=== PATIENT | female | born 1970 | race Caucasian/White ===

== ENCOUNTER 2018-09-11 07:08 | Day surgery (SDC) | payer MEDICAID ==
[2018-08-23 13:49] LABS: ADD MAN DIFF? NO
[2018-08-23 13:51] LABS: BASOPHIL # 0.1 10^3/ul (0.0-0.1); BASOPHILS % 0.8 % (0.0-2.0); EOSINOPHILS # 0.1 10^3/ul (0.0-0.5); EOSINOPHILS % 1.9 % (0.0-7.0); HEMATOCRIT 37.8 % (37.0-47.0); HEMOGLOBIN 12.6 g/dl (12.0-16.0); LYMPHOCYTES # 1.7 10^3/ul (0.8-2.9); LYMPHOCYTES % 29.2 % (15.0-51.0); MEAN CORPUSCULAR HEMOGLOBIN 28.5 pg (29.0-33.0); MEAN CORPUSCULAR HGB CONC 33.3 g/dl (32.0-37.0); MEAN CORPUSCULAR VOLUME 85.5 fl (82.0-101.0); MEAN PLATELET VOLUME 11.2 fl (7.4-10.4); MONOCYTE # 0.5 10^3/ul (0.3-0.9); MONOCYTES % 8.8 % (0.0-11.0); NEUTROPHIL # 3.5 10^3/ul (1.6-7.5); PLATELET COUNT 196 10^3/UL (140-415); RED BLOOD COUNT 4.42 10^6/ul (4.20-5.40); RED CELL DISTRIBUTION WIDTH 13.1 % (11.5-14.5)
[2018-08-23 13:51] LABS: WHITE BLOOD COUNT 5.9 10^3/ul (4.8-10.8)
[2018-08-23 14:11] LABS: INR 0.89; PROTIME 12.1 Sec (11.9-14.9); PT RATIO 0.9
[2018-08-23 14:15] LABS: PARTIAL THROMBOPLASTIN TIME 24.1 Sec (23.0-35.0)
[2018-08-23 14:23] LABS: ANION GAP 8 (5-13); BILIRUBIN,INDIRECT 0.3 mg/dl (0-1.1); BILIRUBIN,TOTAL 0.3 mg/dl (0.2-1.3); CARBON DIOXIDE 26 mmol/L (21-31); CHLORIDE 108 mmol/L (97-110); POTASSIUM 4.1 mmol/L (3.5-5.1); SODIUM 142 mmol/L (135-144)
[2018-08-23 14:29] LABS: BLOOD UREA NITROGEN 16 mg/dl (7-20); GLUCOSE 91 mg/dl (70-220)
[2018-08-23 14:30] LABS: ALANINE AMINOTRANSFERASE 42 IU/L (13-69); ALKALINE PHOSPHATASE 55 IU/L (42-121); ASPARTATE AMINO TRANSFERASE 32 IU/L (15-46); CALCIUM 9.7 mg/dl (8.4-10.2); CREATININE 0.53 mg/dl (0.44-1.00); Estimated GFR > 60 mL/min (>60)
[2018-08-23 14:31] LABS: ALBUMIN 4.1 g/dl (3.3-4.9); ALBUMIN/GLOBULIN RATIO 1.41
[2018-09-08 11:20] LABS: ADD MAN DIFF? NO
[2018-09-08 11:22] LABS: WHITE BLOOD COUNT 5.4 10^3/ul (4.8-10.8)
[2018-09-08 11:22] LABS: BASOPHIL # 0.1 10^3/ul (0.0-0.1); BASOPHILS % 1.1 % (0.0-2.0); EOSINOPHILS # 0.1 10^3/ul (0.0-0.5); EOSINOPHILS % 2.6 % (0.0-7.0); HEMATOCRIT 40.2 % (37.0-47.0); HEMOGLOBIN 13.1 g/dl (12.0-16.0); LYMPHOCYTES # 1.7 10^3/ul (0.8-2.9); LYMPHOCYTES % 31.6 % (15.0-51.0); MEAN CORPUSCULAR HEMOGLOBIN 28.4 pg (29.0-33.0); MEAN CORPUSCULAR HGB CONC 32.6 g/dl (32.0-37.0); MEAN PLATELET VOLUME 11.2 fl (7.4-10.4); MONOCYTE # 0.5 10^3/ul (0.3-0.9); MONOCYTES % 8.8 % (0.0-11.0); NEUTROPHILS % 55.5 % (39.0-77.0); PLATELET COUNT 190 10^3/UL (140-415); RED BLOOD COUNT 4.62 10^6/ul (4.20-5.40); RED CELL DISTRIBUTION WIDTH 13.2 % (11.5-14.5)
[2018-09-08 11:39] LABS: ALANINE AMINOTRANSFERASE 46 IU/L (13-69); ALBUMIN/GLOBULIN RATIO 1.42; ALKALINE PHOSPHATASE 51 IU/L (42-121); ANION GAP 9 (5-13); ASPARTATE AMINO TRANSFERASE 34 IU/L (15-46); BILIRUBIN,INDIRECT 0.4 mg/dl (0-1.1); BILIRUBIN,TOTAL 0.4 mg/dl (0.2-1.3); BLOOD UREA NITROGEN 14 mg/dl (7-20); CALCIUM 9.5 mg/dl (8.4-10.2); CARBON DIOXIDE 26 mmol/L (21-31); CHLORIDE 108 mmol/L (97-110); CREATININE 0.56 mg/dl (0.44-1.00); Estimated GFR > 60 mL/min (>60); GLUCOSE 90 mg/dl (70-220); POTASSIUM 4.1 mmol/L (3.5-5.1); SODIUM 143 mmol/L (135-144); TOTAL PROTEIN 6.8 g/dl (6.1-8.1)
[2018-09-08 11:43] LABS: PROTIME 12.3 Sec (11.9-14.9)
[2018-09-08 12:35] LABS: PARTIAL THROMBOPLASTIN TIME 23.3 Sec (23.0-35.0)
[2018-09-11] MEDS: CEFAZOLIN 2 GM/50 ML (PMX) 50 ML IVPB (06:00)
[2018-09-11] MEDS: SOD CHLORIDE 0.9% 1,000 ML IV ×2 (08:19→11:23)
[2018-09-11] MEDS ORDERED: PROPOFOL 100 ML (09:33)
[2018-09-11] MEDS ORDERED: LIDOCAINE 2% (SDV) 5 ML INJ (09:34)
[2018-09-11] MEDS ORDERED: CEFAZOLIN 1 GM INJ (09:35)
[2018-09-11] MEDS ORDERED: DEXAMETHASONE 4 MG/ML 5 ML INJ ×2 (10:14→10:20)
[2018-09-11] MEDS ORDERED: ONDANSETRON 4 MG INJ (10:14)
[2018-09-11] MEDS: BUPIVACAINE 0.5%/EPI (SDV) 30 ML INJ (10:25)
[2018-09-11] MEDS ORDERED: ALBUTEROL 0.083% (NEB) 2.5 MG/3 ML AMP HHN (11:00)
[2018-09-11] MEDS ORDERED: hydrALAzine 20 MG INJ IV (11:00)
[2018-09-11] MEDS ORDERED: ALBUMIN HUMAN 5% 250 ML IV (11:00)
[2018-09-11] MEDS ORDERED: OXYCODONE/ACETAMINOPHEN (5/325) TAB PO ×2 (11:00)
[2018-09-11] MEDS ORDERED: KETOROLAC 30 MG INJ IV (11:00)
[2018-09-11] MEDS ORDERED: MEPERIDINE 25 MG INJ IV (11:00)
[2018-09-11] MEDS ORDERED: FENTAnyl 50 MCG/ML VIAL IV ×2 (11:00)
[2018-09-11] MEDS ORDERED: EPHEDrine 25 MG/5 ML SYG IV (11:00)
[2018-09-11] MEDS ORDERED: ONDANSETRON 4 MG INJ IV (11:00)
[2018-09-11] MEDS ORDERED: DIPHENHYDRAMINE 50 MG INJ IV (11:00)
[2018-09-11] MEDS ORDERED: LABETALOL HCL 20MG INJ IV (11:00)
[2018-09-11] MEDS: FENTAnyl 50 MCG/ML VIAL IV (11:23)
== END 2018-09-11 14:12 | disposition home or self-care (01) ==
LOC: SDS 07:08
DX: N63.0 Unspecified lump in unspecified breast (principal)
CPT/HCPCS: 19120; 71045; 80053; 84703; 85025; 85610; 85730; 88307; 93005